=== PATIENT | female | born 1950 | race Caucasian/White ===

== ENCOUNTER 2024-12-23 18:19 | Emergency (ER) | payer MEDICARE, OTHER ==
[~2024-12-23] VITALS: Ht 157.5 cm; Wt 85.0 kg
[2024-12-23 18:27] VITALS: BP 181/58
[2024-12-23 18:32] VITALS: BP 155/52
[2024-12-23] MEDS ORDERED: SYNTHROID25 MCG PO (18:35)
[2024-12-23] MEDS ORDERED: OMEPRA/BICAR1 CAP PO (18:35)
[2024-12-23] MEDS ORDERED: OXYBUTYNIN CHLOR5 M2 (18:36)
[2024-12-23 19:20] LABS: BASO% 0.4 % (0-3); EOS% 3.1 % (0-8); HEMATOCRIT 34.4 % (37.0-47.0); HEMOGLOBIN 10.4 g/dl (12.0-16.0); IMMATURE GRANULOCYTES 0.1 % (0.0-5.0); LYMPH% 25.5 % (15-41); MEAN CELL VOLUME 85.8 fL CALC (80.0-100.0); MEAN CORPUSCULAR HGB 25.9 pG CALC (26.0-32.0); MEAN CORPUSCULAR HGB CONC 30.2 g/dL CAL (32.0-36.0); MONO% 15.4 % (2-13); NEUT# 3.72 thou/uL (2.00-7.15); NEUT% 55.5 % (42-76); RED BLOOD COUNT 4.01 mill/uL (4.20-5.60); RED CELL DISTRI WIDTH 14.4 % (11.5-15.5)
[2024-12-23 19:31] LABS: ALBUMIN 4.4 g/dL (3.2-5.0); ALKALINE PHOSPHATASE 106 u/l (38-126); ANION GAP 12 (6-22 (CALC)); BILIRUBIN, TOTAL 0.3 mg/dL (0.02-1.3); BUN 14 mg/dL (8-23); BUN/CREATININE RATIO 20 (12-20 (CALC)); CARBON DIOXIDE 23 mmol/l (22-30); CHLORIDE 105 mmol/l (95-108); CREATININE 0.7 mg/dL (0.5-1.0); ESTIMATED GFR 92 ML/MIN (>=90 (CALC)); ETHYL ALCOHOL 39 mg/dl (0-30); POTASSIUM 4.3 mmol/l (3.5-5.1); SGOT/AST 40 u/l (9-36); SODIUM 137 mmol/l (137-146); TOTAL PROTEIN 7.2 g/dL (6.3-8.2)
[2024-12-23] MEDS ORDERED: ORPHENADRINE CITRATE 30 MG/ML AMP IV ONE (20:05)
[2024-12-23] MEDS ORDERED: KETOROLAC TROMETHAMINE 15 MG/ML SDV IV ONE (20:05)
[2024-12-23] MEDS ORDERED: SODIUM CHLORIDE 0.9% 1,000 ML IV ONE (20:10)
[2024-12-23 20:25] LABS: URINE BILIRUBIN - DIPSTICK Negative (NEGATIVE); URINE BLOOD DIPSTICK Negative (NEGATIVE); URINE GLUCOSE - DIPSTICK Negative (NEGATIVE); URINE KETONE Negative (NEGATIVE); URINE LEUK ESTERASE Negative (NEGATIVE); URINE NITRITE - DIPSTICK Negative (Negative); URINE PROTEIN - DIPSTICK Negative (NEG-TRACE); URINE SPECIFIC GRAVITY <=1.005; URINE UROBILINOGEN - DIPSTICK 0.2 E.U./dL (0.2)
[2024-12-23 20:26] LABS: URINE COLOR Yellow
[2024-12-23] MEDS ORDERED: DECADRON4 MG PO ×2 (20:31→21:00)
[2024-12-23] MEDS ORDERED: PERCOCET 5/325M1 TAB PO ×2 (20:31→21:00)
[2024-12-23] MEDS ORDERED: oxyCODONE 5MG/ ACETAMINOPHEN 325MG TAB PO ONE (20:35)
[2024-12-23 21:06] VITALS: BP 155/52
== END 2024-12-23 21:06 | disposition home or self-care (01) ==
LOC: ED 18:19
PROVIDERS: Nurse Practitioner
DX: R55 Syncope and collapse (principal); M25.551 Pain in right hip; M54.50 Low back pain, unspecified; M47.812 Spondylosis without myelopathy or radiculopathy, cervical region
CPT/HCPCS: J1885; J2360